=== PATIENT | male | born 1975 | race Two or more races ===

== ENCOUNTER 2020-03-18 02:23 | Emergency (ER) | payer MEDICARE, MEDICAID ==
[~2020-03-18] VITALS: Ht 175.3 cm; Wt 60.0 kg
[~2020-03-18 02:23] MED LIST: ARIP20TA5 PO; DIVA125T2 PO; TRAZ-175 PO
[2020-03-18] MEDS ORDERED: NORCO PO (02:34)
[2020-03-18] MEDS ORDERED: RIVA15TA PO (02:34)
[2020-03-18] MEDS ORDERED: SODIUM CHLORIDE FLUSH 10ML SYR IVF ONE ×2 (03:00→04:00)
--- NOTE | 2020-03-18 03:12 | NUR ---
patient in [place] now
--- NOTE | 2020-03-18 04:14 | NUR ---
IV placed and labs not able to be obtained with IV start. I attempted to do single lab draw stink in L[facility] where he has a visble palpable good veing for lab draw and patient is adamant that he does not want me to use this site. I attempted in [facility] and was unsuccessful. RAC has severe scar tissue. lab called and notified of unsuccessful attempts for lab draw. Malia EUCEDA notified as well. call parker in reach. safety maintained. will continue to monitor.
[2020-03-18] MEDS ORDERED: OLAN15TA9 PO (04:24)
[2020-03-18] MEDS ORDERED: RIVA20TA PO (04:24)
[2020-03-18] MEDS ORDERED: OMEP20CA20 PO (04:24)
[2020-03-18 04:57] LABS: BASOPHILS % (AUTO) 1 % (0-1); EOSINOPHILS % (AUTO) 0 % (1-7); LYMPHOCYTES % (AUTO) 27 % (22-44); MEAN CORPUSCULAR HEMOGLOBIN 28.6 pg (27.5-34.5); MEAN CORPUSCULAR HGB CONC 33.4 g/dL (33.2-36.2); MEAN PLATELET VOLUME 6.5 fL (7.4-10.4); MONOCYTES % (AUTO) 6 % (2-9); NEUTROPHILS % (AUTO) 66 % (42-75); PLATELET COUNT 414 x10^3/uL (130-400); RED BLOOD COUNT 4.19 x10^6/uL (4.38-5.82); RED CELL DISTRIBUTION WIDTH 14.7 % (9.4-14.8)
[2020-03-18 04:58] LABS: MD NO
[2020-03-18 05:03] LABS: ALANINE AMINOTRANSFERASE 14 U/L (12-78); ALBUMIN 0.9 g/dL (3.4-5.0); ANION GAP 5 mmol/L (5-15); CHLORIDE 114 mmol/L (98-107); CREATININE 0.42 mg/dL (0.7-1.3)
[2020-03-18 05:05] LABS: ALKALINE PHOSPHATASE 140 U/L (45-117); BILIRUBIN,TOTAL 0.2 mg/dL (0.2-1.0); TOTAL PROTEIN 4.1 g/dL (6.4-8.2)
--- NOTE | 2020-03-18 05:15 | NUR ---
call parker in reach. safety maintained. patient reports pain has decreased and is now 7/10. in NAD. VS remain stable on RA. safety maintained. will continue to monitor.
[2020-03-18 05:20] LABS: MICROSCOPIC NOT IND
--- NOTE | 2020-03-18 06:08 | NUR ---
discharge instructions reviewed with patient and patient's gf at bedside. no further questions. prescription handed directly to patient. in NAD. VS remain stable on discharge. IV removed per dc protocol. all personal belongings with patient. girlfriend of patient requested wheelchair to transfer patient out to [facility]; this was provided
[2020-03-18 06:10] VITALS: BP 122/91
== END 2020-03-18 06:16 | disposition home or self-care (01) ==
LOC: ED 06:00
DX: R10.11 Right upper quadrant pain (principal); R07.89 Other chest pain; F17.210 Nicotine dependence, cigarettes, uncomplicated; R06.02 Shortness of breath; R00.0 Tachycardia, unspecified
CPT/HCPCS: 36415; 71045; 76700; 80053; 81003; 83690; 85025; 93005; 99285; 99406

== ENCOUNTER 2020-07-10 17:05 | Emergency (ER) | payer MEDICARE, MEDICAID ==
[~2020-07-10] VITALS: Ht 175.3 cm; Wt 60.0 kg
[~2020-07-10 17:05] MED LIST changes: +NORCO PO; +OLAN15TA9 PO; +OMEP20CA20 PO; +RIVA15TA PO; +RIVA20TA PO
[2020-07-10 18:20] LABS: BASOPHILS % (AUTO) 1 % (0-1); EOSINOPHILS % (AUTO) 1 % (1-7); LYMPHOCYTES % (AUTO) 38 % (22-44); MEAN CORPUSCULAR HEMOGLOBIN 29.9 pg (27.5-34.5); MEAN CORPUSCULAR HGB CONC 33.8 g/dL (33.2-36.2); MEAN PLATELET VOLUME 7.3 fL (7.4-10.4); MONOCYTES % (AUTO) 7 % (2-9); NEUTROPHILS % (AUTO) 53 % (42-75); PLATELET COUNT 334 x10^3/uL (130-400); RED BLOOD COUNT 5.03 x10^6/uL (4.38-5.82); RED CELL DISTRIBUTION WIDTH 14.6 % (9.4-14.8)
[2020-07-10 18:26] LABS: MD NO
[2020-07-10] MEDS ORDERED: SODIUM CHLORIDE FLUSH 10ML SYR IVF ONE (18:30)
[2020-07-10 18:36] LABS: ALANINE AMINOTRANSFERASE 33 U/L (12-78); ALBUMIN 2.4 g/dL (3.4-5.0); ANION GAP 3 mmol/L (5-15); CALCIUM 8.2 mg/dL (8.5-10.1); CHLORIDE 109 mmol/L (98-107); CREATININE 0.63 mg/dL (0.7-1.3)
[2020-07-10 18:39] LABS: ALKALINE PHOSPHATASE 70 U/L (45-117); BILIRUBIN,TOTAL 0.3 mg/dL (0.2-1.0); TOTAL PROTEIN 6.2 g/dL (6.4-8.2)
[2020-07-10 20:41] LABS: MICROSCOPIC NOT IND
[2020-07-10] MEDS ORDERED: OMNIPAQUE 350 MG/ML, 100ML BOTTLE ONE (20:51)
--- NOTE | 2020-07-10 21:13 | NUR ---
PT RESTING IN [facility]. UP FOR RECHECK
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
[2020-07-10] MEDS ORDERED: ACETAMINOPHEN 500 MG TABLET PO ONE (21:30)
[2020-07-10 21:36] VITALS: BP 107/74
--- NOTE | 2020-07-10 21:37 | NUR ---
Patient given discharge instructions and they have confirmed that they understand the instructions. Patient ambulatory for steady transfer from bed to wheelchair but uses personal wheelchair at baseline. NAD, all questions answered appropriately, denies additional needs at this time. No personal belongings left in room after discharge.
== END 2020-07-10 21:42 | disposition home or self-care (01) ==
LOC: ED 21:17
DX: R10.31 Right lower quadrant pain (principal); R10.33 Periumbilical pain; R19.7 Diarrhea, unspecified; F17.210 Nicotine dependence, cigarettes, uncomplicated; Z93.0 Tracheostomy status; Z87.11 Personal history of peptic ulcer disease
CPT/HCPCS: 36415; 74177; 80053; 81003; 83690; 85025; 99285; Q9967